=== PATIENT | female | born 1985 | race African-American/Black ===

== ENCOUNTER 2018-09-05 02:21 | Emergency (ER) | payer SELFPAY ==
[~2018-09-05] VITALS: Ht 157.5 cm; Wt 62.0 kg
[2018-09-05 02:28] VITALS: BP 132/75
== END 2018-09-05 03:00 | disposition left against medical advice (07) ==
LOC: ER 02:21
DX: N64.4 Mastodynia (principal); Z53.21 Procedure and treatment not carried out due to patient leaving prior to being seen by health care provider